=== PATIENT | male | born 1990 | race Caucasian/White ===

== ENCOUNTER 2019-11-13 15:43 | Inpatient (IN) | payer OTHER ==
[~2019-11-13] VITALS: Ht 182.9 cm; Wt 75.3 kg
[2019-11-13 17:29] LABS: HEMATOCRIT 51.2 % (42.0-52.0); HEMOGLOBIN 17.4 g/dl (13.5-18.0); MEAN CELL VOLUME 88 fl (80.0-100.0); MEAN CORPUSCULAR HEMOGLOBIN 30 pg (27.0-31.0); MEAN CORPUSCULAR HGB CONC 34 g/dl (33.0-37.0); MEAN PLATELET VOLUME 9.3 fl (7.4-10.4); PLATELET COUNT 326 K/mm3 (130-400); RED BLOOD COUNT 5.85 M/mm3 (4.20-5.60); REDCELL DISTRIBUTION WIDTH-CV 12.6 % (11.5-14.5)
[2019-11-13 17:58] LABS: ALBUMIN 4.5 gm/dL (3.5-5.0); BILIRUBIN,TOTAL 1.3 mg/dL (0.0-1.0); C-REACTIVE PROTEIN 3.2 mg/dL (0.0-0.9); CALCIUM 9.3 mg/dL (8.4-10.2); CREATININE, serum 0.8 (0.66-1.25); POTASSIUM 4.8 mmol/L (3.4-5.0); TOTAL PROTEIN 8.2 gm/dL (6.4-8.2)
[2019-11-13] MEDS ORDERED: PERCOCET 325 MG1 TA2 PO (18:21)
[2019-11-13] MEDS ORDERED: STOOL SOFTENER100 M2 PO (18:22)
[2019-11-13] MEDS ORDERED: CIPRO 500MG TA500 MG PO (18:45)
[2019-11-13 19:08] LABS: COLLECTION METHOD CLEAN CATCH
[2019-11-13 19:22] LABS: MUCOUS Present /lpf; PH 6 (5-8); SQUAMOUS EPITHELIAL None Seen /hpf; URINE APPEARANCE Clear; URINE BACTERIA None Seen /hpf; URINE BILIRUBIN Negative (NEGATIVE); URINE BLOOD Negative (NEGATIVE); URINE COLOR Yellow; URINE GLUCOSE Negative (NEGATIVE); URINE KETONE 1+ (NEGATIVE); URINE LEUKOCYTE ESTERASE Negative (NEGATIVE); URINE NITRATE Negative (NEGATIVE); URINE PROTEIN(semi-quant) Negative (NEGATIVE); URINE RBC 0-2 /hpf
[2019-11-13 19:45] LABS: BAND 1 % (0-10); EOSINOPHIL 1 % (0-4); LYMPHOCYTE 5 % (20.0-51.0); MYELOCYTE 1 % (0-0); NEUTROPHILS 87 % (42.0-75.2); PLATELET ESTIMATE NORMAL (NORMAL)
[2019-11-13 20:40] VITALS: BP 147/97; PULSE 68; TEMP 98.8
[2019-11-14] VITALS (7 sets, daily range): BP systolic 103–119; BP diastolic 59–75; PULSE 50–82; TEMP 98–98.5
[2019-11-14 06:48] LABS: CREATININE, serum 0.92 (0.66-1.25); HEMATOCRIT 41.3 % (42.0-52.0); MEAN CELL VOLUME 88 fl (80.0-100.0); MEAN CORPUSCULAR HGB CONC 35 g/dl (33.0-37.0); MEAN PLATELET VOLUME 9.6 fl (7.4-10.4); PLATELET COUNT 315 K/mm3 (130-400); RED BLOOD COUNT 4.69 M/mm3 (4.20-5.60); REDCELL DISTRIBUTION WIDTH-CV 12.8 % (11.5-14.5)
[2019-11-14 06:49] LABS: ALBUMIN 3.4 gm/dL (3.5-5.0); CALCIUM 8.6 mg/dL (8.4-10.2); POTASSIUM 4.1 mmol/L (3.4-5.0); TOTAL PROTEIN 6.4 gm/dL (6.4-8.2)
[2019-11-14 07:04] LABS: HEMOGLOBIN 14.3 g/dl (13.5-18.0); MEAN CORPUSCULAR HEMOGLOBIN 30 pg (27.0-31.0)
[2019-11-14 09:35] LABS: LYMPHOCYTE 18 % (20.0-51.0); NEUTROPHILS 71 % (42.0-75.2); PLATELET ESTIMATE NORMAL (NORMAL)
[2019-11-15 04:00] VITALS: BP 105/63; PULSE 101; TEMP 98
[2019-11-15 07:14] LABS: HEMATOCRIT 39.9 % (42.0-52.0); HEMOGLOBIN 13.3 g/dl (13.5-18.0); MEAN CELL VOLUME 88 fl (80.0-100.0); MEAN CORPUSCULAR HEMOGLOBIN 29 pg (27.0-31.0); MEAN CORPUSCULAR HGB CONC 33 g/dl (33.0-37.0); MEAN PLATELET VOLUME 9.5 fl (7.4-10.4); PLATELET COUNT 309 K/mm3 (130-400); RED BLOOD COUNT 4.52 M/mm3 (4.20-5.60); REDCELL DISTRIBUTION WIDTH-CV 12.8 % (11.5-14.5)
[2019-11-15 07:34] LABS: CALCIUM 8.5 mg/dL (8.4-10.2); CREATININE, serum 0.97 (0.66-1.25); POTASSIUM 4.3 mmol/L (3.4-5.0)
[2019-11-15 07:36] VITALS: BP 107/64; PULSE 55; TEMP 97.9
[2019-11-15 08:13] LABS: BAND 6 % (0-10); BASOPHIL 1 % (0-2); EOSINOPHIL 2 % (0-4); NEUTROPHILS 47 % (42.0-75.2)
[2019-11-15 08:15] LABS: LYMPHOCYTE 42 % (20.0-51.0); PLATELET ESTIMATE NORMAL (NORMAL)
[2019-11-15 12:12] VITALS: BP 127/87; PULSE 62; TEMP 98.3
[2019-11-15 16:29] VITALS: BP 121/75; PULSE 53; TEMP 98.2
[2019-11-15 21:06] VITALS: BP 116/74; PULSE 60; TEMP 98.7
[2019-11-16 00:01] VITALS: BP 97/59; PULSE 50; TEMP 98.1
[2019-11-16 03:34] VITALS: BP 105/65; PULSE 59; TEMP 97.8
[2019-11-16 07:36] VITALS: BP 127/89; PULSE 59; TEMP 98
[2019-11-16 11:38] VITALS: BP 126/80; PULSE 60; TEMP 98.2
[2019-11-16] MEDS ORDERED: AMOXICILLIN 8751 TAB PO (12:51)
[2019-11-16] MEDS ORDERED: FLAGYL500 MG PO (12:51)
== END 2019-11-16 15:34 | disposition home or self-care (01) | DRG 373 ==
LOC: COL.ER 15:43 → SURG 18:56
PROVIDERS: Emergency Medicine; ADMIT Surgery
DX: K65.9 Peritonitis, unspecified (principal); Z79.891 Long term (current) use of opiate analgesic
CPT/HCPCS: J1170; J1650; J2405; J2543; J3010; J3230; J7030; J7042; Q9967